=== PATIENT | male | born 1970 | race Caucasian/White ===

== ENCOUNTER 2019-03-03 06:48 | Inpatient (IN) | payer BC, MEDICAID ==
[~2019-03-03] VITALS: Ht 182.9 cm; Wt 78.0 kg
[~2019-03-03 06:48] MED LIST: INSU100C5 SQ-INSULIN; INSU100I18 SQ-INSULIN; INSU100I28 SQ-INSULIN; MAGN400T26 PO; METO10TA82 PO; ONDA4TAB10 PO
[2019-03-03] MEDS ORDERED: SODIUM CHLORIDE 0.9% 1,000ML IVBOLUS ONE (07:30)
--- NOTE | 2019-03-03 07:30 | NUR ---
B/P, SPO2, [address]
[2019-03-03 08:00] LABS: PH, VENOUS 7.128 pH (7.320-7.420)
[2019-03-03 08:03] LABS: FIO2 ROOM AIR %
[2019-03-03 08:04] LABS: MEAN CORPUSCULAR HEMOGLOBIN 27.4 pg (27.5-34.5); MEAN CORPUSCULAR HGB CONC 33.3 g/dL (33.2-36.2); MEAN CORPUSCULAR VOLUME 82.3 fL (81-97); MEAN PLATELET VOLUME 7.2 fL (7.4-10.4); PLATELET COUNT 391 x10^3/uL (130-400); RED BLOOD COUNT 6.43 x10^6/uL (4.38-5.82); RED CELL DISTRIBUTION WIDTH 13.6 % (9.4-14.8)
--- NOTE | 2019-03-03 08:09 | NUR ---
DISCUSSED POC WITH PT. PT DENIES ABILITY TO PRODUCE UA AT THIS TIME. PER DR HERR ICE CHIPS OK AND PROVIDED
[2019-03-03] MEDS ORDERED: REGULAR INSULIN 62.5 UNITS in SODIUM CHLORIDE 0.9% 249.375 ML IV PRN ×2 (08:13→10:30)
[2019-03-03 08:14] LABS: ALBUMIN 4.3 g/dL (3.4-5.0); ANION GAP 23 mmol/L (5-15); CALCIUM 8.5 mg/dL (8.5-10.1); CHLORIDE 98 mmol/L (98-107)
[2019-03-03 08:18] LABS: ALANINE AMINOTRANSFERASE 22 U/L (12-78); ALKALINE PHOSPHATASE 158 U/L (45-117); BILIRUBIN,TOTAL 0.8 mg/dL (0.2-1.0); TOTAL PROTEIN 7.6 g/dL (6.4-8.2)
[2019-03-03 08:38] LABS: BASOPHILS % (AUTO) 0 % (0-1); EOSINOPHILS % (AUTO) 0 % (1-7); LYMPHOCYTES # (AUTO) 0.47 x10^3/uL (1-3.4); LYMPHOCYTES % (AUTO) 2 % (22-44); MD SCAN; MONOCYTES % (AUTO) 5 % (2-9); NEUTROPHILS % (AUTO) 93 % (42-75)
--- NOTE | 2019-03-03 08:59 | NUR ---
SBAR TO KENJI ESTES VIA TELEPHONE
[2019-03-03 09:09] LABS: ACETONE, SERUM Large (80mg/dL) mg/dL (Negative)
[2019-03-03] MEDS ORDERED: SODIUM CHLORIDE 0.9% 1,000 ML IV SCH (10:04)
[2019-03-03 10:26] LABS: MICROSCOPIC NOT IND
[2019-03-03 10:30] LABS: CULTURE INDICATED? NO
[2019-03-03] MEDS ORDERED: GLUCAGON 1 MG IM PRN (10:30)
[2019-03-03] MEDS ORDERED: ACETAMINOPHEN 325 MG TABLET PO PRN (10:30)
[2019-03-03] MEDS ORDERED: ONDANSETRON 2MG/ML, 2ML IVPush PRN (10:30)
[2019-03-03] MEDS ORDERED: DEXTROSE 4 GM TAB.CHEW PO PRN (10:30)
[2019-03-03] MEDS ORDERED: DEXTROSE 50%, 50ML SYRINGE IVPush PRN (10:30)
[2019-03-03 12:55] LABS: ANION GAP 19 mmol/L (5-15); CALCIUM 8.3 mg/dL (8.5-10.1); CHLORIDE 106 mmol/L (98-107); CREATININE 1.71 mg/dL (0.7-1.3)
[2019-03-03] MEDS: HEPARIN 5,000 UNITS/ML, 1ML SQ SCH ×2 (14:42→21:39)
[2019-03-03 15:07] LABS: MICROSCOPIC NOT IND
[2019-03-03 15:13] LABS: CULTURE INDICATED? NO
[2019-03-03 16:23] LABS: ANION GAP 13 mmol/L (5-15); CALCIUM 8.2 mg/dL (8.5-10.1); CHLORIDE 108 mmol/L (98-107)
[2019-03-03] MEDS: INSULIN GLARGINE 100 UNITS/ML, PEN SQ-INSULIN SCH ×2 (17:00→21:50)
[2019-03-03 20:38] LABS: ANION GAP 12 mmol/L (5-15); CALCIUM 7.9 mg/dL (8.5-10.1); CHLORIDE 110 mmol/L (98-107); CREATININE 1.25 mg/dL (0.7-1.3)
[2019-03-03] MEDS ORDERED: D5%-0.45% NACL 1,000 ML IV SCH (21:00)
[2019-03-03] MEDS: SODIUM CHLORIDE FLUSH 10ML SYR IVF SCH (21:39)
[2019-03-03] MEDS: INSULIN LISPRO 100 UNITS/ML, PEN SQ-INSULIN SCH (21:40)
[2019-03-04] VITALS (7 sets, daily range): BP systolic 106–130; BP diastolic 66–86
[2019-03-04 01:34] LABS: ANION GAP 8 mmol/L (5-15); CALCIUM 7.9 mg/dL (8.5-10.1); CHLORIDE 109 mmol/L (98-107); CREATININE 1.22 mg/dL (0.7-1.3)
[2019-03-04] MEDS: HEPARIN 5,000 UNITS/ML, 1ML SQ SCH ×3 (04:16→23:08)
[2019-03-04 04:35] LABS: BASOPHILS # (AUTO) 0.02 x10^3/uL (0-0.1); BASOPHILS % (AUTO) 0 % (0-1); EOSINOPHILS % (AUTO) 0 % (1-7); LYMPHOCYTES # (AUTO) 0.68 x10^3/uL (1-3.4); LYMPHOCYTES % (AUTO) 5 % (22-44); MD NO; MEAN CORPUSCULAR HGB CONC 34.5 g/dL (33.2-36.2); MEAN CORPUSCULAR VOLUME 81.1 fL (81-97); MEAN PLATELET VOLUME 6.5 fL (7.4-10.4); MONOCYTES # (AUTO) 1.04 x10^3/uL (0.2-0.8); MONOCYTES % (AUTO) 8 % (2-9); NEUTROPHILS # (AUTO) 11.28 x10^3/uL (1.8-6.8); NEUTROPHILS % (AUTO) 87 % (42-75); PLATELET COUNT 327 x10^3/uL (130-400); RED BLOOD COUNT 5.37 x10^6/uL (4.38-5.82); RED CELL DISTRIBUTION WIDTH 13.7 % (9.4-14.8)
[2019-03-04 04:47] LABS: ALBUMIN 3.2 g/dL (3.4-5.0); ANION GAP 9 mmol/L (5-15); CALCIUM 7.7 mg/dL (8.5-10.1); CHLORIDE 106 mmol/L (98-107)
[2019-03-04 04:52] LABS: ALANINE AMINOTRANSFERASE 18 U/L (12-78); ALKALINE PHOSPHATASE 109 U/L (45-117); BILIRUBIN,TOTAL 0.6 mg/dL (0.2-1.0); CREATININE 1.15 mg/dL (0.7-1.3); TOTAL PROTEIN 5.9 g/dL (6.4-8.2)
[2019-03-04] MEDS: INSULIN LISPRO 100 UNITS/ML, PEN SQ-INSULIN SCH ×4 (07:00→23:09)
[2019-03-04] MEDS: SODIUM CHLORIDE FLUSH 10ML SYR IVF SCH ×2 (08:08→20:23)
[2019-03-04] MEDS: INSULIN GLARGINE 100 UNITS/ML, PEN SQ-INSULIN SCH ×2 (08:09→23:09)
[2019-03-04] MEDS: SODIUM CHLORIDE 0.9% 1,000 ML IV SCH ×2 (14:54→23:33)
[2019-03-04] MEDS: ONDANSETRON 2MG/ML, 2ML IVPush PRN ×2 (14:55→20:23)
[2019-03-04] MEDS: PROMETHAZINE 25 MG/ML, 1ML IM PRN ×2 (16:24→23:24)
[2019-03-05] MEDS: PROMETHAZINE 25 MG/ML, 1ML IM PRN (04:03)
[2019-03-05 05:21] LABS: CHLORIDE 102 mmol/L (98-107)
[2019-03-05 05:26] LABS: ANION GAP 14 mmol/L (5-15); CALCIUM 7.8 mg/dL (8.5-10.1)
[2019-03-05] MEDS: HEPARIN 5,000 UNITS/ML, 1ML SQ SCH ×3 (06:42→22:52)
[2019-03-05] MEDS: INSULIN LISPRO 100 UNITS/ML, PEN SQ-INSULIN SCH ×4 (06:42→21:00)
[2019-03-05 07:00] VITALS: BP 139/84
[2019-03-05] MEDS: INSULIN GLARGINE 100 UNITS/ML, PEN SQ-INSULIN SCH ×2 (07:37→21:16)
[2019-03-05] MEDS: SODIUM CHLORIDE FLUSH 10ML SYR IVF SCH ×2 (07:37→21:00)
[2019-03-05] MEDS: SODIUM CHLORIDE 0.9% 1,000 ML IV SCH ×2 (07:43→18:13)
[2019-03-05] MEDS ORDERED: chlorPROMAZINE 25 MG/ML, 1ML IM ONE (12:30)
[2019-03-05 13:41] VITALS: BP 133/83
[2019-03-05 18:56] VITALS: BP 118/77
[2019-03-06 00:27] VITALS: BP 115/78
[2019-03-06] MEDS: SODIUM CHLORIDE 0.9% 1,000 ML IV SCH ×3 (04:18→23:54)
[2019-03-06 06:32] LABS: ANION GAP 12 mmol/L (5-15); CALCIUM 7.8 mg/dL (8.5-10.1); CHLORIDE 105 mmol/L (98-107); CREATININE 0.88 mg/dL (0.7-1.3)
[2019-03-06] MEDS: ONDANSETRON 2MG/ML, 2ML IVPush PRN ×2 (06:47→20:55)
[2019-03-06] MEDS: INSULIN LISPRO 100 UNITS/ML, PEN SQ-INSULIN SCH ×4 (06:47→20:55)
[2019-03-06] MEDS: HEPARIN 5,000 UNITS/ML, 1ML SQ SCH ×2 (06:47→20:44)
[2019-03-06 07:26] VITALS: BP 125/78
[2019-03-06] MEDS: SODIUM CHLORIDE FLUSH 10ML SYR IVF SCH ×2 (08:27→20:45)
[2019-03-06] MEDS: INSULIN GLARGINE 100 UNITS/ML, PEN SQ-INSULIN SCH ×2 (08:28→20:54)
[2019-03-06] MEDS ORDERED: PANTOPRAZOLE GRAN. PKT 40 MG PO SCH (09:00)
[2019-03-06 09:36] LABS: TROPONIN I < 0.015 ng/mL (0.000-0.045)
[2019-03-06] MEDS ORDERED: OMNIPAQUE 350 MG/ML, 100ML BOTTLE ONE (10:04)
[2019-03-06] MEDS ORDERED: PANTOPRAZOLE 40 MG IV IVPush ONE (12:00)
[2019-03-06 14:31] VITALS: BP 129/78
[2019-03-06 19:23] VITALS: BP 133/79
[2019-03-07 00:29] VITALS: BP 128/83
[2019-03-07] MEDS: HEPARIN 5,000 UNITS/ML, 1ML SQ SCH ×3 (06:20→20:22)
[2019-03-07] MEDS: INSULIN LISPRO 100 UNITS/ML, PEN SQ-INSULIN SCH ×4 (06:27→20:34)
[2019-03-07] MEDS: INSULIN GLARGINE 100 UNITS/ML, PEN SQ-INSULIN SCH ×2 (09:00→20:33)
[2019-03-07] MEDS: SODIUM CHLORIDE FLUSH 10ML SYR IVF SCH ×2 (09:00→20:22)
[2019-03-07 09:07] VITALS: BP 129/81
[2019-03-07] MEDS: SODIUM CHLORIDE 0.9% 1,000 ML IV SCH ×2 (09:33→18:51)
[2019-03-07 14:40] VITALS: BP 130/81
[2019-03-07 19:23] VITALS: BP 134/84
[2019-03-08 02:40] VITALS: BP 137/81
[2019-03-08] MEDS: SODIUM CHLORIDE 0.9% 1,000 ML IV SCH (03:26)
[2019-03-08] MEDS: HEPARIN 5,000 UNITS/ML, 1ML SQ SCH ×2 (06:29→12:21)
[2019-03-08] MEDS: INSULIN LISPRO 100 UNITS/ML, PEN SQ-INSULIN SCH ×2 (06:34→11:57)
[2019-03-08 06:49] VITALS: BP 111/74
[2019-03-08] MEDS: METOCLOPRAMIDE 10MG TABLET PO SCH ×2 (07:21→11:56)
[2019-03-08] MEDS: SODIUM CHLORIDE FLUSH 10ML SYR IVF SCH (09:54)
[2019-03-08] MEDS: INSULIN GLARGINE 100 UNITS/ML, PEN SQ-INSULIN SCH (09:54)
[2019-03-08] MEDS ORDERED: INSU100I28 SQ-INSULIN (11:47)
[2019-03-08] MEDS ORDERED: METO10TA2 PO (11:47)
[2019-03-08] MEDS ORDERED: INSU100I18 SQ-INSULIN (11:47)
[2019-03-08 12:38] VITALS: BP 126/47
== END 2019-03-08 13:26 | disposition home or self-care (01) | DRG 637 ==
LOC: ED 08:27 → CCU 08:28 → ED 09:00 → 3WST 03-04 10:40 → 4NOR 03-04 17:17 → DCLOUNGE 03-08 13:16
PROVIDERS: ADMIT Internal Medicine; ATTEND Internal Medicine
DX: E10.10 Type 1 diabetes mellitus with ketoacidosis without coma (principal); N17.0 Acute kidney failure with tubular necrosis; D72.829 Elevated white blood cell count, unspecified; E87.5 Hyperkalemia; Z83.3 Family history of diabetes mellitus; Z88.7 Allergy status to serum and vaccine
CPT/HCPCS: 36415; 71045; 74177; 80048; 80053; 81003; 82010; 82803; 82962; 83690; 83735; 84100; 84484; 85025; 87040; 87081; 93005; 96360; 96361; 96372; 99285; G0378; J1644; J2405; J2550; J3230; Q9967; C9113; J1815; J7030

== ENCOUNTER 2019-04-10 06:09 | Inpatient (IN) | payer BC ==
[~2019-04-10] VITALS: Ht 182.9 cm; Wt 64.6 kg
[~2019-04-10 06:09] MED LIST changes: +METO10TA2 PO
[2019-04-10] MEDS ORDERED: ONDANSETRON 2MG/ML, 2ML ONE (06:29)
[2019-04-10] MEDS ORDERED: ONDANSETRON 2MG/ML, 2ML IVPush ONE (06:30)
[2019-04-10] MEDS ORDERED: SODIUM CHLORIDE FLUSH 10ML SYR IVF ONE (06:30)
[2019-04-10] MEDS ORDERED: SODIUM CHLORIDE 0.9% 1,000ML IVBOLUS ONE ×2 (06:30→07:30)
--- NOTE | 2019-04-10 06:42 | NUR ---
PT HERE FOR N/V AND HIGH BLOOD SUGAR OF 336. PT HAS HAD N/V X 12 HRS. PT IS A TYPE 1 DIABETIC. PT IS TACHYCARDIC AND HAS INCREASED RESPIRATIONS. OTHER VSS. FLUIDS RUNNING. PT MEDICATED WITH ZOFRAN FOR NAUSEA. LAB AT BEDSIDE. CALL LIGHT IN REACH
[2019-04-10 07:00] LABS: MEAN CORPUSCULAR HEMOGLOBIN 28.4 pg (27.5-34.5); MEAN CORPUSCULAR HGB CONC 32.7 g/dL (33.2-36.2); MEAN CORPUSCULAR VOLUME 86.9 fL (81-97); MEAN PLATELET VOLUME 7.9 fL (7.4-10.4); PLATELET COUNT 429 x10^3/uL (130-400); RED BLOOD COUNT 5.61 x10^6/uL (4.38-5.82); RED CELL DISTRIBUTION WIDTH 15.9 % (9.4-14.8)
--- NOTE | 2019-04-10 07:01 | NUR ---
report form dawson murdock. pt resting in room. tachy 130s, all other vss on ra. pt reports sob and requests o2. 1lnc placed and blanket provided for pt comfort. labs compelte. awaiting results.
[2019-04-10 07:13] LABS: PH, VENOUS 7.017 pH (7.320-7.420)
[2019-04-10 07:14] LABS: ALANINE AMINOTRANSFERASE 17 U/L (12-78); ALBUMIN 3.8 g/dL (3.4-5.0); ANION GAP 29 mmol/L (5-15); CALCIUM 8.6 mg/dL (8.5-10.1); CHLORIDE 101 mmol/L (98-107); CREATININE 1.74 mg/dL (0.7-1.3)
[2019-04-10 07:17] LABS: ALKALINE PHOSPHATASE 182 U/L (45-117); BILIRUBIN,TOTAL 1.1 mg/dL (0.2-1.0); MD YES; TOTAL PROTEIN 6.8 g/dL (6.4-8.2); TROPONIN I < 0.015 ng/mL (0.000-0.045)
[2019-04-10 07:20] LABS: BAND#(MANUAL) 1.12 x10^3/uL; BANDS%(MANUAL) 6 % (0-7); LYMPH#(MANUAL) 0.19 x10^3/uL (1-3.4); LYMPHS% (MANUAL) 1 % (22-44); MONOS#(MANUAL) 0.74 x10^3/uL (0.3-2.7); MONOS% (MANUAL) 4 % (2-9); SEG#(MANUAL) 16.55 x10^3/uL (1.8-6.8); SEGS% (MANUAL) 89 % (42-75)
[2019-04-10 07:22] LABS: <RBC MORPHOLOGY> NORMAL
[2019-04-10 07:23] LABS: <PLATELET ESTIMATE> INCREASED; <PLT MORPHOLOGY> NORMAL PLT MORPH
--- NOTE | 2019-04-10 07:28 | NUR ---
abnormal labs reported to [facility]. 2nd large bore iv established. 1st liter ns completed and 2nd liter ns started. ua collected and sent. pt remains tachy, 120s-130s, and remains on 1lnc for comfort, all other vss. no needs expressed. plan to admit icu.
[2019-04-10 07:41] LABS: MICROSCOPIC NOT IND
[2019-04-10 07:42] LABS: CULTURE INDICATED? NO
[2019-04-10 07:52] LABS: ACETONE, SERUM Large (80mg/dL) mg/dL (Negative)
--- NOTE | 2019-04-10 08:09 | NUR ---
pt requesting something to drink. pt made aware of npo status. pt also stating sob while scrunched down in bed. pt educated that it will be easier to breathe if he is sitting up higher, but refuses to move higher in bed. pt remains tachy 120s-130s, tachypneic 26, all other vss on 1lnc. admit orders received. awaiting room assignment.
[2019-04-10] MEDS ORDERED: SODIUM CHLORIDE FLUSH 10ML SYR IVF PRN (09:00)
[2019-04-10 09:34] VITALS: BP 102/69
[2019-04-10 09:45] VITALS: BP 105/61
[2019-04-10 11:06] LABS: ANION GAP 26 mmol/L (5-15); CALCIUM 8.8 mg/dL (8.5-10.1); CHLORIDE 106 mmol/L (98-107)
[2019-04-10] MEDS ORDERED: SODIUM CHLORIDE 0.9% 1,000 ML IV SCH (11:51)
[2019-04-10] MEDS ORDERED: morphine SULFATE 10 MG/ML, 1ML IVPush PRN (12:00)
[2019-04-10] MEDS ORDERED: INSULIN REGULAR 100 UNITS/ML, 3ML VIAL IVPush ONE (12:00)
[2019-04-10] MEDS ORDERED: HEPARIN 5,000 UNITS/ML, 1ML SQ SCH (12:00)
[2019-04-10] MEDS ORDERED: REGULAR INSULIN 62.5 UNITS in SODIUM CHLORIDE 0.9% 249.375 ML IV PRN (12:00)
[2019-04-10] MEDS ORDERED: INSULIN LISPRO 100 UNITS/ML, PEN ONE (12:06)
[2019-04-10] MEDS ORDERED: HEPARIN 5,000 UNITS/ML, 1ML ONE (12:07)
[2019-04-10 14:56] LABS: AMPHETAMINE SCREEN, URINE Negative (Negative); BARBITURATE SCREEN, URINE Negative (Negative); BENZODIAZEPINE SCREEN, URINE Negative (Negative); CANNABINOID SCREEN, URINE Negative (Negative); COCAINE SCREEN, URINE Negative (Negative); METHADONE SCREEN, URINE Negative (Negative); OPIATE SCREEN, URINE Negative (Negative)
[2019-04-10 15:43] LABS: ANION GAP 23 mmol/L (5-15); CALCIUM 8.6 mg/dL (8.5-10.1); CHLORIDE 111 mmol/L (98-107); CREATININE 1.42 mg/dL (0.7-1.3)
[2019-04-10] MEDS: POTASSIUM CHLORIDE 10 MEQ in D5%-0.45% NACL 1,000 ML IV SCH ×2 (18:09→22:21)
[2019-04-10] MEDS: ONDANSETRON 2MG/ML, 2ML IVPush PRN (18:15)
[2019-04-10 19:24] LABS: ANION GAP 19 mmol/L (5-15); CHLORIDE 115 mmol/L (98-107); CREATININE 1.17 mg/dL (0.7-1.3)
[2019-04-10] MEDS ORDERED: PANTOPRAZOLE 80 MG in SODIUM CHLORIDE 0.9% 50 ML IV ONE (20:00)
[2019-04-10 20:08] LABS: MEAN CORPUSCULAR HEMOGLOBIN 28.3 pg (27.5-34.5); MEAN CORPUSCULAR HGB CONC 33.1 g/dL (33.2-36.2); MEAN CORPUSCULAR VOLUME 85.5 fL (81-97); MEAN PLATELET VOLUME 7.3 fL (7.4-10.4); PLATELET COUNT 325 x10^3/uL (130-400); RED BLOOD COUNT 4.98 x10^6/uL (4.38-5.82); RED CELL DISTRIBUTION WIDTH 15.5 % (9.4-14.8)
[2019-04-10] MEDS: PANTOPRAZOLE 80 MG in SODIUM CHLORIDE 0.9% 100 ML IV SCH (20:18)
[2019-04-10 20:28] LABS: MD YES
[2019-04-10 20:30] LABS: ANISOCYTOSIS 1+; BAND#(MANUAL) 3.99 x10^3/uL; BANDS%(MANUAL) 21 % (0-7); ECHINOCYTES 1+; LYMPH#(MANUAL) 1.71 x10^3/uL (1-3.4); LYMPHS% (MANUAL) 9 % (22-44); METAMYELOCYTES# (MANUAL) 0.19 x10^3/uL (0-0); METAMYELOCYTES% (MANUAL) 1 % (0-1); MONOS#(MANUAL) 2.66 x10^3/uL (0.3-2.7); MONOS% (MANUAL) 14 % (2-9); OVALOCYTES 1+; SEG#(MANUAL) 10.45 x10^3/uL (1.8-6.8); SEGS% (MANUAL) 55 % (42-75)
[2019-04-10 20:31] LABS: <PLATELET ESTIMATE> ADEQUATE; <PLT MORPHOLOGY> NORMAL PLT MORPH
[2019-04-11] MEDS: ONDANSETRON 2MG/ML, 2ML IVPush PRN ×3 (00:02→11:32)
[2019-04-11 00:05] LABS: ANION GAP 19 mmol/L (5-15); CALCIUM 7.9 mg/dL (8.5-10.1); CHLORIDE 114 mmol/L (98-107); CREATININE 1.15 mg/dL (0.7-1.3)
[2019-04-11 03:34] LABS: MEAN CORPUSCULAR HEMOGLOBIN 28.3 pg (27.5-34.5); MEAN CORPUSCULAR HGB CONC 33.3 g/dL (33.2-36.2); MEAN CORPUSCULAR VOLUME 85.1 fL (81-97); MEAN PLATELET VOLUME 6.9 fL (7.4-10.4); PLATELET COUNT 319 x10^3/uL (130-400); RED BLOOD COUNT 5.02 x10^6/uL (4.38-5.82); RED CELL DISTRIBUTION WIDTH 15.8 % (9.4-14.8)
[2019-04-11 03:41] LABS: MD YES
[2019-04-11 03:44] LABS: ALANINE AMINOTRANSFERASE 18 U/L (12-78); ALBUMIN 3.2 g/dL (3.4-5.0); ANION GAP 17 mmol/L (5-15); CHLORIDE 113 mmol/L (98-107); CREATININE 1.18 mg/dL (0.7-1.3)
[2019-04-11 03:46] LABS: ALKALINE PHOSPHATASE 139 U/L (45-117); BILIRUBIN,TOTAL 1.1 mg/dL (0.2-1.0); TOTAL PROTEIN 5.9 g/dL (6.4-8.2)
[2019-04-11 03:47] LABS: BAND#(MANUAL) 0.51 x10^3/uL; BANDS%(MANUAL) 4 % (0-7); LYMPH#(MANUAL) 0.64 x10^3/uL (1-3.4); LYMPHS% (MANUAL) 5 % (22-44); MONOS#(MANUAL) 0.64 x10^3/uL (0.3-2.7); MONOS% (MANUAL) 5 % (2-9); SEG#(MANUAL) 11.01 x10^3/uL (1.8-6.8); SEGS% (MANUAL) 86 % (42-75)
[2019-04-11 03:48] LABS: <PLATELET ESTIMATE> ADEQUATE; <PLT MORPHOLOGY> NORMAL PLT MORPH; ANISOCYTOSIS 1+; ECHINOCYTES 1+; OVALOCYTES 1+
[2019-04-11] MEDS: REGULAR INSULIN 62.5 UNITS in SODIUM CHLORIDE 0.9% 249.375 ML IV PRN (04:13)
[2019-04-11 04:30] VITALS: BP 125/62
[2019-04-11] MEDS: PANTOPRAZOLE 80 MG in SODIUM CHLORIDE 0.9% 100 ML IV SCH (05:14)
[2019-04-11] MEDS: POTASSIUM CHLORIDE 10 MEQ in D5%-0.45% NACL 1,000 ML IV SCH ×3 (05:14→19:31)
[2019-04-11 08:41] LABS: ANION GAP 16 mmol/L (5-15); CALCIUM 8.3 mg/dL (8.5-10.1); CHLORIDE 114 mmol/L (98-107); CREATININE 1.19 mg/dL (0.7-1.3)
[2019-04-11] MEDS ORDERED: MAGNESIUM SULFATE PMX 2GM/50ML 50 ML IV ONE (09:30)
[2019-04-11] MEDS ORDERED: SODIUM PHOSPHATE 30 MMOL in SODIUM CHLORIDE 0.9% 500 ML IV ONE (09:30)
[2019-04-11] MEDS: PANTOPRAZOLE 40 MG IV IVPush SCH ×3 (10:46→21:46)
[2019-04-11 11:47] LABS: ANION GAP 14 mmol/L (5-15); CALCIUM 8.1 mg/dL (8.5-10.1); CHLORIDE 113 mmol/L (98-107)
[2019-04-11 11:49] LABS: CREATININE 1.17 mg/dL (0.7-1.3)
[2019-04-11 15:21] LABS: ANION GAP 14 mmol/L (5-15); CALCIUM 8.2 mg/dL (8.5-10.1); CHLORIDE 113 mmol/L (98-107); CREATININE 1.18 mg/dL (0.7-1.3)
[2019-04-11 19:12] LABS: ANION GAP 11 mmol/L (5-15); CALCIUM 7.8 mg/dL (8.5-10.1); CHLORIDE 115 mmol/L (98-107); CREATININE 1.01 mg/dL (0.7-1.3)
[2019-04-12 00:52] LABS: ANION GAP 8 mmol/L (5-15); CALCIUM 7.7 mg/dL (8.5-10.1); CHLORIDE 114 mmol/L (98-107)
[2019-04-12] MEDS ORDERED: D5%-0.45NACL+KCL 20MEQ 1,000 ML IV SCH (02:00)
[2019-04-12] MEDS: REGULAR INSULIN 62.5 UNITS in SODIUM CHLORIDE 0.9% 249.375 ML IV PRN (02:25)
[2019-04-12 05:22] LABS: ANION GAP 7 mmol/L (5-15); CALCIUM 8.1 mg/dL (8.5-10.1); CHLORIDE 113 mmol/L (98-107); CREATININE 0.96 mg/dL (0.7-1.3)
[2019-04-12] MEDS ORDERED: POTASSIUM CHLORIDE 20 MEQ TAB.ER.PRT PO ONE (07:30)
[2019-04-12] MEDS: INSULIN GLARGINE 100 UNITS/ML, PEN SQ-INSULIN SCH ×2 (09:19→20:22)
[2019-04-12] MEDS: INSULIN LISPRO 100 UNITS/ML, PEN SQ-INSULIN SCH ×4 (09:19→20:22)
[2019-04-12] MEDS ORDERED: GADOBUTROL 7.5 MMOL/7.5 ML PFS ONE (13:18)
[2019-04-12 13:30] VITALS: BP 122/81
[2019-04-12 18:52] VITALS: BP 132/85
[2019-04-13 00:47] VITALS: BP 116/82
[2019-04-13] MEDS: INSULIN LISPRO 100 UNITS/ML, PEN SQ-INSULIN SCH ×4 (07:00→21:28)
[2019-04-13 07:37] VITALS: BP 112/75
[2019-04-13] MEDS: INSULIN GLARGINE 100 UNITS/ML, PEN SQ-INSULIN SCH ×2 (09:36→21:00)
[2019-04-13] MEDS: ASPIRIN 81 MG TABLET EC PO SCH (11:43)
[2019-04-13 13:17] VITALS: BP 118/82
[2019-04-13] MEDS: PANTOPRAZOLE 20MG TABLET PO SCH (17:08)
[2019-04-13 18:58] VITALS: BP 117/78
[2019-04-13] MEDS ORDERED: ATORVASTATIN 40 MG TABLET PO SCH (22:00)
[2019-04-14 00:33] VITALS: BP 125/83
[2019-04-14 05:17] LABS: CHOL/HDL RATIO 2.4; LDL/HDL RATIO 1.1 (0.5-3.0)
[2019-04-14 05:34] LABS: HEMOGLOBIN A1C 8.1 % (4.2-6.3)
[2019-04-14] MEDS: PANTOPRAZOLE 20MG TABLET PO SCH (06:00)
[2019-04-14] MEDS: ASPIRIN 81 MG TABLET EC PO SCH (06:00)
[2019-04-14 06:25] VITALS: BP 111/77
[2019-04-14] MEDS: INSULIN LISPRO 100 UNITS/ML, PEN SQ-INSULIN SCH ×2 (08:32→11:00)
[2019-04-14] MEDS: INSULIN GLARGINE 100 UNITS/ML, PEN SQ-INSULIN SCH (08:33)
[2019-04-14 12:36] VITALS: BP 119/73
[2019-04-14] MEDS ORDERED: METO5TAB2 PO (15:37)
[2019-04-14] MEDS ORDERED: ASPI81TA45 PO (15:37)
[2019-04-14] MEDS ORDERED: ATOR20TA37 PO (15:37)
== END 2019-04-14 16:40 | disposition home or self-care (01) | DRG 637 ==
LOC: ED 07:22 → EDIP 07:46 → CCU 09:06 → 4EST 04-12 12:16 → DCLOUNGE 04-14 16:33
PROVIDERS: ADMIT Internal Medicine; ATTEND Internal Medicine
DX: E10.10 Type 1 diabetes mellitus with ketoacidosis without coma (principal); N17.0 Acute kidney failure with tubular necrosis; R65.10 Systemic inflammatory response syndrome (SIRS) of non-infectious origin without acute organ dysfunction; D72.829 Elevated white blood cell count, unspecified; E10.21 Type 1 diabetes mellitus with diabetic nephropathy; E10.43 Type 1 diabetes mellitus with diabetic autonomic (poly)neuropathy; F14.90 Cocaine use, unspecified, uncomplicated; E86.0 Dehydration; K31.84 Gastroparesis; Z86.73 Personal history of transient ischemic attack (TIA), and cerebral infarction without residual deficits; Z91.19 Patient's noncompliance with other medical treatment and regimen; Z79.4 Long term (current) use of insulin
CPT/HCPCS: 36415; 70450; 70547; 70553; 71045; 78264; 80048; 80053; 80061; 80307; 81003; 82010; 82803; 82962; 83036; 83735; 84100; 84484; 85014; 85018; 85025; 87081; 93005; 93306; 96361; 96374; A9585; G0378; J1644; J1815; J2405; J3480; A9541; C9113; C9898; J3475; J7030; J7040; J7050

== ENCOUNTER 2019-10-19 08:11 | Inpatient (IN) | payer BC ==
[~2019-10-19] VITALS: Ht 182.9 cm; Wt 71.7 kg
[~2019-10-19 08:11] MED LIST changes: +ASPI81TA45 PO; +ATOR20TA37 PO; +METO5TAB2 PO
[2019-10-19] MEDS ORDERED: ONDANSETRON 2MG/ML, 2ML ONE (08:26)
[2019-10-19] MEDS ORDERED: SODIUM CHLORIDE 0.9% 1,000ML IVBOLUS ONE ×2 (08:30→11:00)
[2019-10-19] MEDS ORDERED: ONDANSETRON 2MG/ML, 2ML IVPush ONE (08:30)
[2019-10-19 08:47] LABS: PH, VENOUS 7.154 pH (7.320-7.420)
[2019-10-19 08:49] LABS: FIO2 ROOM AIR %
[2019-10-19 08:51] LABS: MEAN CORPUSCULAR HEMOGLOBIN 28.3 pg (27.5-34.5); MEAN CORPUSCULAR VOLUME 85.8 fL (81-97); MEAN PLATELET VOLUME 7.4 fL (7.4-10.4); PLATELET COUNT 336 x10^3/uL (130-400); RED BLOOD COUNT 5.82 x10^6/uL (4.38-5.82); RED CELL DISTRIBUTION WIDTH 14.9 % (9.4-14.8)
[2019-10-19 09:01] LABS: ALANINE AMINOTRANSFERASE 20 U/L (12-78); ALBUMIN 4.6 g/dL (3.4-5.0); ANION GAP 23 mmol/L (5-15); CALCIUM 9.7 mg/dL (8.5-10.1); CHLORIDE 99 mmol/L (98-107); CREATININE 1.65 mg/dL (0.7-1.3)
[2019-10-19 09:04] LABS: ALKALINE PHOSPHATASE 153 U/L (45-117); BILIRUBIN,TOTAL 1.4 mg/dL (0.2-1.0); TOTAL PROTEIN 8.3 g/dL (6.4-8.2)
[2019-10-19 09:17] LABS: MD YES
[2019-10-19 09:19] LABS: BAND#(MANUAL) 1.47 x10^3/uL; BANDS%(MANUAL) 8 % (0-7); LYMPH#(MANUAL) 0.74 x10^3/uL (1-3.4); LYMPHS% (MANUAL) 4 % (22-44); MONOS#(MANUAL) 2.21 x10^3/uL (0.3-2.7); MONOS% (MANUAL) 12 % (2-9); SEG#(MANUAL) 13.98 x10^3/uL (1.8-6.8); SEGS% (MANUAL) 76 % (42-75)
[2019-10-19 09:20] LABS: <PLATELET ESTIMATE> ADEQUATE; <PLT MORPHOLOGY> NORMAL PLT MORPH; ANISOCYTOSIS 1+; PMNS WITH VACUOLES 1+
[2019-10-19] MEDS ORDERED: PROMETHAZINE 25 MG/ML, 1ML IM ONE (09:30)
[2019-10-19] MEDS ORDERED: SODIUM CHLORIDE FLUSH 10ML SYR IVF PRN (09:30)
[2019-10-19 09:31] LABS: MICROSCOPIC NOT IND
[2019-10-19] MEDS ORDERED: PROMETHAZINE 25 MG/ML, 1ML ONE (09:31)
[2019-10-19 09:33] LABS: CULTURE INDICATED? NO
--- NOTE | 2019-10-19 09:38 | NUR ---
PT VOMITING BILEOUS LIQUID DESPITE ZOFRAN. RECEIVED ORDER FOR PHENERGAN AND GIVEN PER JAN. PT AWARE OF INTENTION TO ADMIT*-
[2019-10-19 10:29] LABS: ACETONE, SERUM Large (80mg/dL) mg/dL (Negative)
--- NOTE | 2019-10-19 10:33 | NUR ---
RESTING WITH EYES CLOSED, NO LONGER VOMITING
--- NOTE | 2019-10-19 10:54 | NUR ---
REPORT TO CYNDEE ESTES.
--- NOTE | 2019-10-19 11:05 | NUR ---
DR MAYS AT BEDSIDE
--- NOTE | 2019-10-19 11:15 | NUR ---
TO ICU ON MONITOR WITH RN AND TECH
[2019-10-19] MEDS ORDERED: PROMETHAZINE 25 MG/ML, 1ML IM PRN (11:30)
[2019-10-19] MEDS ORDERED: ONDANSETRON 2MG/ML, 2ML IVPush PRN (11:30)
[2019-10-19] MEDS ORDERED: ACETAMINOPHEN 325 MG TABLET PO PRN (11:30)
[2019-10-19] MEDS ORDERED: METOCLOPRAMIDE 5 MG/ML, 2ML IVPush PRN (11:30)
[2019-10-19] MEDS: SODIUM CHLORIDE 0.9% 1,000 ML IV SCH ×2 (11:43→16:59)
[2019-10-19] MEDS ORDERED: PHARMACY MAY ADJ FOR RENAL FX MC PRN (12:00)
[2019-10-19] MEDS: ENOXAPARIN 40 MG/0.4 ML SQ SCH (12:06)
[2019-10-19 12:38] LABS: ANION GAP 24 mmol/L (5-15); CALCIUM 8.3 mg/dL (8.5-10.1); CHLORIDE 105 mmol/L (98-107)
[2019-10-19] MEDS: REGULAR INSULIN 62.5 UNITS in SODIUM CHLORIDE 0.9% 249.375 ML IV PRN ×2 (12:39→18:55)
[2019-10-19 16:16] LABS: ANION GAP 15 mmol/L (5-15); CALCIUM 8.4 mg/dL (8.5-10.1); CHLORIDE 114 mmol/L (98-107); CREATININE 1.44 mg/dL (0.7-1.3)
[2019-10-19] MEDS: D5%-0.45NACL+KCL 20MEQ 1,000 ML IV SCH (16:50)
[2019-10-19 20:55] LABS: ANION GAP 5 mmol/L (5-15); CALCIUM 8.5 mg/dL (8.5-10.1); CHLORIDE 117 mmol/L (98-107); CREATININE 1.36 mg/dL (0.7-1.3)
[2019-10-19] MEDS ORDERED: FAMOTIDINE 20 MG/2 ML IVPush SCH (21:00)
[2019-10-20 00:48] LABS: ANION GAP 5 mmol/L (5-15); CALCIUM 8.4 mg/dL (8.5-10.1); CHLORIDE 118 mmol/L (98-107); CREATININE 1.17 mg/dL (0.7-1.3)
[2019-10-20] MEDS: D5%-0.45NACL+KCL 20MEQ 1,000 ML IV SCH (01:28)
[2019-10-20 04:00] VITALS: BP 104/67
[2019-10-20 05:20] LABS: MEAN CORPUSCULAR HEMOGLOBIN 28.5 pg (27.5-34.5); MEAN CORPUSCULAR VOLUME 86.3 fL (81-97); MEAN PLATELET VOLUME 6.7 fL (7.4-10.4); PLATELET COUNT 319 x10^3/uL (130-400); RED BLOOD COUNT 5.03 x10^6/uL (4.38-5.82); RED CELL DISTRIBUTION WIDTH 14.9 % (9.4-14.8)
[2019-10-20 05:31] LABS: CHLORIDE 115 mmol/L (98-107)
[2019-10-20 05:37] LABS: ALANINE AMINOTRANSFERASE 18 U/L (12-78); ALBUMIN 3.3 g/dL (3.4-5.0); ALKALINE PHOSPHATASE 104 U/L (45-117); ANION GAP 8 mmol/L (5-15); BILIRUBIN,TOTAL 0.5 mg/dL (0.2-1.0); CALCIUM 8.2 mg/dL (8.5-10.1); CREATININE 1.23 mg/dL (0.7-1.3); TOTAL PROTEIN 6.1 g/dL (6.4-8.2)
[2019-10-20 06:02] LABS: BASOPHILS # (AUTO) 0.01 x10^3/uL (0-0.1); BASOPHILS % (AUTO) 0 % (0-1); EOSINOPHILS % (AUTO) 0 % (1-7); LYMPHOCYTES # (AUTO) 0.74 x10^3/uL (1-3.4); LYMPHOCYTES % (AUTO) 5 % (22-44); MD SCAN; MONOCYTES # (AUTO) 0.99 x10^3/uL (0.2-0.8); MONOCYTES % (AUTO) 7 % (2-9); NEUTROPHILS % (AUTO) 87 % (42-75)
[2019-10-20 08:39] LABS: ANION GAP 10 mmol/L (5-15); CALCIUM 8.7 mg/dL (8.5-10.1); CHLORIDE 113 mmol/L (98-107); CREATININE 1.11 mg/dL (0.7-1.3)
[2019-10-20] MEDS ORDERED: DEXTROSE 4 GM TAB.CHEW PO PRN (09:30)
[2019-10-20] MEDS ORDERED: DEXTROSE 50%, 50ML SYRINGE IVPush PRN (09:30)
[2019-10-20] MEDS ORDERED: SODIUM CHLORIDE 0.9% 1,000 ML IV SCH (09:30)
[2019-10-20] MEDS ORDERED: GLUCAGON 1 MG IM PRN (09:30)
[2019-10-20] MEDS: INSULIN GLARGINE 100 UNITS/ML, PEN SQ-INSULIN SCH ×2 (10:34→20:39)
[2019-10-20] MEDS: INSULIN LISPRO 100 UNITS/ML, PEN SQ-INSULIN SCH ×3 (11:00→20:40)
[2019-10-20] MEDS: ENOXAPARIN 40 MG/0.4 ML SQ SCH (11:39)
[2019-10-20 19:40] VITALS: BP 124/77
[2019-10-20] MEDS: SODIUM CHLORIDE FLUSH 10ML SYR IVF SCH (20:40)
[2019-10-20] MEDS ORDERED: ATORVASTATIN 20 MG TABLET PO SCH (21:00)
[2019-10-21 02:05] VITALS: BP 107/74
[2019-10-21 05:52] LABS: BASOPHILS # (AUTO) 0.03 x10^3/uL (0-0.1); BASOPHILS % (AUTO) 0 % (0-1); EOSINOPHILS # (AUTO) 0.05 x10^3/uL (0-0.4); EOSINOPHILS % (AUTO) 1 % (1-7); LYMPHOCYTES # (AUTO) 1.01 x10^3/uL (1-3.4); LYMPHOCYTES % (AUTO) 15 % (22-44); MD NO; MEAN CORPUSCULAR HEMOGLOBIN 28.3 pg (27.5-34.5); MEAN CORPUSCULAR HGB CONC 33.1 g/dL (33.2-36.2); MEAN CORPUSCULAR VOLUME 85.5 fL (81-97); MEAN PLATELET VOLUME 6.7 fL (7.4-10.4); MONOCYTES # (AUTO) 0.57 x10^3/uL (0.2-0.8); MONOCYTES % (AUTO) 9 % (2-9); NEUTROPHILS # (AUTO) 5.02 x10^3/uL (1.8-6.8); NEUTROPHILS % (AUTO) 75 % (42-75); PLATELET COUNT 230 x10^3/uL (130-400); RED BLOOD COUNT 4.32 x10^6/uL (4.38-5.82); RED CELL DISTRIBUTION WIDTH 15.4 % (9.4-14.8)
[2019-10-21] MEDS ORDERED: ASPIRIN 81 MG TABLET EC PO SCH (06:00)
[2019-10-21 06:10] LABS: ALBUMIN 2.7 g/dL (3.4-5.0); ANION GAP 7 mmol/L (5-15); CALCIUM 7.8 mg/dL (8.5-10.1); CHLORIDE 109 mmol/L (98-107)
[2019-10-21 06:15] LABS: ALANINE AMINOTRANSFERASE 38 U/L (12-78); ALKALINE PHOSPHATASE 92 U/L (45-117); BILIRUBIN,TOTAL 0.7 mg/dL (0.2-1.0); CREATININE 0.76 mg/dL (0.7-1.3); TOTAL PROTEIN 5.2 g/dL (6.4-8.2)
[2019-10-21] MEDS: INSULIN LISPRO 100 UNITS/ML, PEN SQ-INSULIN SCH (07:00)
[2019-10-21 07:15] VITALS: BP 106/72
[2019-10-21] MEDS: SODIUM CHLORIDE FLUSH 10ML SYR IVF SCH (07:58)
[2019-10-21] MEDS: INSULIN GLARGINE 100 UNITS/ML, PEN SQ-INSULIN SCH (08:09)
== END 2019-10-21 11:06 | disposition home or self-care (01) | DRG 637 ==
LOC: ED 08:34 → EDIP 09:17 → CCU 11:19 → ICU 10-20 07:11 → 3N 10-20 12:44 → DCLOUNGE 10-21 10:54
PROVIDERS: ADMIT Internal Medicine; ATTEND Hospitalist
DX: E10.10 Type 1 diabetes mellitus with ketoacidosis without coma (principal); N17.0 Acute kidney failure with tubular necrosis; R65.10 Systemic inflammatory response syndrome (SIRS) of non-infectious origin without acute organ dysfunction; D64.9 Anemia, unspecified; D72.825 Bandemia; Z88.7 Allergy status to serum and vaccine; E10.43 Type 1 diabetes mellitus with diabetic autonomic (poly)neuropathy; E78.5 Hyperlipidemia, unspecified; E86.0 Dehydration; E87.5 Hyperkalemia; F14.10 Cocaine abuse, uncomplicated; F17.200 Nicotine dependence, unspecified, uncomplicated; K31.84 Gastroparesis; Z86.73 Personal history of transient ischemic attack (TIA), and cerebral infarction without residual deficits
CPT/HCPCS: 36415; 71045; 80048; 80053; 81003; 82010; 82803; 82962; 83690; 83735; 84100; 85025; 87040; 87081; 93005; J1650; J1815; J2405; J2550; J2765; J3480; J3490; J7030; J7050; 99291; G0378

== ENCOUNTER 2019-10-30 10:55 | Emergency (ER) | payer BC ==
[~2019-10-30] VITALS: Ht 182.9 cm; Wt 66.0 kg
[2019-10-30] MEDS ORDERED: SODIUM CHLORIDE 0.9% 1,000ML IVBOLUS ONE (11:30)
[2019-10-30 12:02] LABS: BASOPHILS # (AUTO) 0.02 x10^3/uL (0-0.1); BASOPHILS % (AUTO) 1 % (0-1); EOSINOPHILS # (AUTO) 0.02 x10^3/uL (0-0.4); EOSINOPHILS % (AUTO) 0 % (1-7); LYMPHOCYTES # (AUTO) 0.82 x10^3/uL (1-3.4); LYMPHOCYTES % (AUTO) 16 % (22-44); MD NO; MEAN CORPUSCULAR HEMOGLOBIN 28.7 pg (27.5-34.5); MEAN CORPUSCULAR HGB CONC 33.5 g/dL (33.2-36.2); MEAN CORPUSCULAR VOLUME 85.6 fL (81-97); MEAN PLATELET VOLUME 7.2 fL (7.4-10.4); MONOCYTES # (AUTO) 0.61 x10^3/uL (0.2-0.8); MONOCYTES % (AUTO) 12 % (2-9); NEUTROPHILS # (AUTO) 3.53 x10^3/uL (1.8-6.8); NEUTROPHILS % (AUTO) 70 % (42-75); PLATELET COUNT 313 x10^3/uL (130-400); RED BLOOD COUNT 5.23 x10^6/uL (4.38-5.82); RED CELL DISTRIBUTION WIDTH 14.8 % (9.4-14.8)
[2019-10-30 12:12] LABS: ALBUMIN 3.5 g/dL (3.4-5.0); CHLORIDE 100 mmol/L (98-107)
[2019-10-30 12:16] LABS: ALANINE AMINOTRANSFERASE 40 U/L (12-78); ALKALINE PHOSPHATASE 132 U/L (45-117); ANION GAP 12 mmol/L (5-15); BILIRUBIN,TOTAL 0.9 mg/dL (0.2-1.0); CALCIUM 8.6 mg/dL (8.5-10.1); CREATININE 0.91 mg/dL (0.7-1.3); TOTAL PROTEIN 6.6 g/dL (6.4-8.2)
--- NOTE | 2019-10-30 12:20 | NUR ---
RECEIVED REPORT FROM FRANKLYN TRUJILLO. PT RESTING ON GURNEY. NADN. MONITORS IN PLACE. PT AWARE OF NEED FOR UA SAMPLE. STATES HE CANNOT PROVIDE SAMPLE AT THIS TIME. URINAL LEFT AT BEDSIDE.
--- NOTE | 2019-10-30 12:23 | NUR ---
PIV placed from-1l ns started Report to Gisele ESTES
[2019-10-30 13:11] LABS: ACETONE, SERUM Large (80mg/dL) mg/dL (Negative)
--- NOTE | 2019-10-30 14:08 | NUR ---
PT AWARE OF NEED FOR UA. STATES HE WILL ATTEMPT TO PROVIDE UA SAMPLE.
[2019-10-30 14:37] LABS: MICROSCOPIC NOT IND
[2019-10-30 14:43] LABS: CULTURE INDICATED? NO
[2019-10-30 14:50] VITALS: BP 116/88
== END 2019-10-30 14:53 | disposition home or self-care (01) ==
LOC: ED 14:06
DX: E11.65 Type 2 diabetes mellitus with hyperglycemia (principal); E87.2 Acidosis
CPT/HCPCS: 36600; 71045; 80053; 81003; 82010; 82803; 82962; 83605; 85025; 96360; 99284; J7030